=== PATIENT | male | born 1985 | race African-American/Black ===

== ENCOUNTER 2017-04-28 11:08 | Emergency (ER) | payer OTHER ==
[2017-04-28] MEDS ORDERED: Lidocaine 1% PF 2 ML SDV INJECT ONE (11:22)
[2017-04-28] MEDS ORDERED: Diphtheria,Pertussis(Acell),Tetanus Vaccine 0.5 ML Syringe IM ONE (11:23)
[2017-04-28] MEDS ORDERED: Lidocaine 1% 2 ML ONE (11:24)
[2017-04-28] MEDS ORDERED: Bacitracin Oint 1 GM U/D Packet TOP ONE (11:24)
--- NOTE | 2017-04-28 11:28 | EDM.PDOC ---
ED HPI GENERAL MEDICAL PROBLEM - General Chief Complaint: Laceration Stated Complaint: CUT ON LT FINGER Time Seen by Provider: 04/28/17 11:20 Source of Information: Reports: Patient History Limitations: Reports: No Limitations - History of Present Illness INITIAL COMMENTS - FREE TEXT/NARRATIVE: HISTORY AND PHYSICAL: History of present illness: [Comes to the emergency room complaining of a laceration to his left middle finger. Was cutting onions at his work at [employer] when the knife slipped cutting his finger. No other injuries. He denies any pain. Has had mild to moderate bleeding. Does not remember last tetanus shot was given. Does not have a local PCP has he recently moved to [place] from [place].] Review of systems: As per history of present illness and below otherwise all systems reviewed and negative. Past medical history: As per history of present illness and as reviewed below otherwise noncontributory. Surgical history: As per history of present illness and as reviewed below otherwise noncontributory. Social history: No reported history of drug or alcohol abuse. Family history: As per history of present illness and as reviewed below otherwise noncontributory. Physical exam: HEENT: Atraumatic, normocephalic. Skin: 1.5cm linear lac to L middle distal finger, palmar side. Extremities: Neurovascular unremarkable. Neuro: Awake, alert, oriented. No motor or sensory deficit. Exam nonfocal. Therapeutic: Adacel Impression: [Laceration, left middle finger] Plan: [See procedure note. Return in 7 days for suture removal. Adacel given in ER.] Definitive disposition and diagnosis as appropriate pending reevaluation and review of above. Left Hand Pain Score (Numeric/FACES): 2 - Related Data Allergies Allergy/AdvReac Type Severity Reaction Status Date / Time Fish Containing Products Allergy Rash Verified 04/28/17 11:19 Home Meds: Home Meds . [No Known Home Meds] 04/28/17 [History] ED ROS GENERAL - Review of Systems Review Of Systems: ROS reveals no pertinent complaints other than HPI. ED EXAM, SKIN/RASH Exam: See Below ED SKIN PROCEDURES - Laceration/Wound Repair Left Middle Distal Finger Lac/Wound length In cm: 1.5 Appearance: Subcutaneous, Linear, Clean Distal NVT: Neuro & Vascular Intact Anesthetic Type: Local Local Anesthesia - Lidocaine (Xylocaine): 1% Plain Local Anesthetic Volume: 2cc Skin Prep: Chlorhexidine (Hibiciens), Saline Exploration/Debridement/Repair: Wound Explored, In a Bloodless Field Closed with: Sutures Suture Size: 4-0 # of Sutures: 5 Suture Type: Nylon Sterile Dressing Applied: Nurse Tetanus Status Addressed: Yes Complications: No Course - Vital Signs Last Recorded V/S: Last Vital Signs Temp 97.9 F 04/28/17 11:23 Pulse 70 04/28/17 11:23 Resp 16 04/28/17 11:23 BP 124/80 04/28/17 11:23 Pulse Ox 98 04/28/17 11:23 - Orders/Labs/Meds Orders: Active Orders 24 hr Category Date Time Status Vaccines to be Administered [RC] PER UNIT ROUTINE Care 04/28/17 11:23 Active Meds: Medications Discontinued Medications Generic Name Dose Route Start Last Admin Trade Name Randi PRN Reason Stop Dose Admin Bacitracin 1 dose 04/28/17 11:24 Bacitracin Oint 1 Gm TOP 04/28/17 11:25 ONETIME ONE Diphtheria/Tetanus/Acell Pertussis 0.5 ml 04/28/17 11:23 Adacel IM 04/28/17 11:24 .ONCE ONE Lidocaine HCl Confirm 04/28/17 11:24 Xylocaine-Mpf 1% Administered 04/28/17 11:25 Dose 2 mls @ as directed .ROUTE .STK-MED ONE Lidocaine HCl 2 ml 04/28/17 11:22 Xylocaine-Mpf 1% INJECT 04/28/17 11:23 ONETIME ONE Departure - Departure Time of Disposition: 11:48 Disposition: Home, Self-Care 01 Condition: Good Clinical Impression: Laceration - Discharge Information Referrals: PCP,None [Primary Care Provider] - Forms: ED Department Discharge Additional Instructions: The following information is given to patients seen in the emergency department who are being discharged to home. This information is to outline your options for follow-up care. We provide all patients seen in our emergency department with a follow-up referral. The need for follow-up, as well as the timing and circumstances, are variable depending upon the specifics of your emergency department visit. If you don't have a primary care physician on staff, we will provide you with a referral. We always advise you to contact your personal physician following an emergency department visit to inform them of the circumstance of the visit and for follow-up with them and/or the need for any referrals to a consulting specialist. The emergency department will also refer you to a specialist when appropriate. This referral assures that you have the opportunity for follow-up care with a specialist. All of these measure are taken in an effort to provide you with optimal care, which includes your follow-up. Under all circumstances we always encourage you to contact your private physician who remains a resource for coordinating your care. When calling for follow-up care, please make the office aware that this follow-up is from your recent emergency room visit. If for any reason you are refused follow-up, please contact the [facility] emergency department at and asked to speak to the emergency department charge nurse. [facility] [address] [place] [id number] Establish care with a local PCP if you are going to remain in the [facility] for any length of time. Return to ER in 7 days to have sutures removed, and as needed as discussed. - My Orders Last 24 Hours: My Active Orders 04/28/17 11:23 Vaccines to be Administered [RC] PER UNIT ROUTINE - Assessment/Plan Last 24 Hours: My Active Orders 04/28/17 11:23 Vaccines to be Administered [RC] PER UNIT ROUTINE
== END 2017-04-28 12:10 | disposition home or self-care (01) ==
LOC: MW.ED 11:08
DX: S61.213A Laceration without foreign body of left middle finger without damage to nail, initial encounter (principal); Z23 Encounter for immunization; Z91.013 Allergy to seafood; W26.0XXA Contact with knife, initial encounter
CPT/HCPCS: 12001; 90471; 90715; 99282; 99282-25